=== PATIENT | male | born 1990 | race Caucasian/White ===

== ENCOUNTER 2023-01-01 20:16 | Emergency (ER) | payer BC, OTHER ==
[2023-01-01] MEDS ORDERED: NA CHLORIDE 0.9% 2,000 ML ONE (20:49)
[2023-01-01 21:09] LABS: Absolute Lymphocytes (CBC) 1.2 K/uL (0.7-4.9); Hematocrit 42.8 % (39.6-49.0); Lymphocytes % 8.4 % (15.3-44.8); MCV 88.8 fL (80-100); MPV 8.2 fL (7.6-11.3); RBC Red Blood Cell Count 4.82 M/uL (4.33-5.43)
[2023-01-01] MEDS ORDERED: ONDANSETRON 4 MG/2 ML VIAL ONE ×2 (21:18→21:35)
[2023-01-01 21:21] LABS: Protime INR 0.84
[2023-01-01 21:26] LABS: ALT/SGPT 36 U/L (16-61); Albumin 3.6 g/dL (3.4-5.0); Alkaline Phosphatase 75 U/L (45-117); BUN Blood Urea Nitrogen 19 mg/dL (7-18); Bicarbonate 25 mEq/L (21-32); Bilirubin Total 0.3 mg/dL (0.2-1.0); Creatine Phosphokinase 325 U/L (39-308); Glomerular Filtration Rate 77 ml/min (=/>90); Glucose Level 113 mg/dL (74-106); NT PRO-BNP 21 pg/mL (<125); Protein, Total 7.2 g/dL (6.4-8.2); Sodium Level 139 mEq/L (136-145); Troponin High Sensitivity 20.8 pg/mL (<58.9)
--- NOTE | 2023-01-01 21:26 | RAD REPORT ---
EXAM DESCRIPTION: Soheila Single View01/01/2023 9:12 pm CLINICAL HISTORY: ABDOMINAL DISTENTION COMPARISON: No comparisons TECHNIQUE: Portable AP view of the chest. FINDINGS: The lungs show no focal opacities. Streaky perihilar opacities, and bronchial wall promine nce. No pneumothorax or effusion. The cardiomediastinal contours are unremarkable. IMPRESSION: Findings suggestive of reactive airway disease, R viral infection, without evidence of f ocal pneumonia.
[2023-01-01 21:27] LABS: AST/SGOT 28 U/L (15-37); Bilirubin Direct < 0.1 mg/dL (0-0.2); Bilirubin Indirect, Calculated ND mg/dL (0.2-0.8); Magnesium 2.1 mg/dL (1.6-2.4); Potassium 3.7 mEq/L (3.5-5.1)
--- NOTE | 2023-01-01 22:07 | EDPHYS ---
Physician Documentation [facility] Name: Richard Becker Age: 32 yrs Sex: Male : 1990 Arrival Date: 01/01/2023 Time: 20:16 Bed 7 Private MD: ED Physician Adam Foster HPI: 01/01 20:31 This 32 yrs old Male presents to ER via EMS with complaints of abd pain and harpreet wild behavior. Historical: - Home Meds: 01/02 00:12 sertraline 100 mg oral tablet daily [Active]; cholecalcif 50 mcg [Active]; hydroxyzine ll3 HCl 50 mg Oral tablet as needed [Active]; sulindac 150 mg Oral tablet PRN [Active]; - PMHx: 01/01 20:22 PTSD; as6 - Immunization history:: Adult Immunizations unknown. - Social history:: Smoking status: unknown. ROS: 20:32 Constitutional: Negative for fever, chills, and weight loss, Eyes: Negative for injury, harpreet pain, redness, and discharge, ENT: Negative for injury, pain, and discharge, Neck: Negative for injury, pain, and swelling, Cardiovascular: Negative for chest pain, palpitations, and edema, Respiratory: Negative for shortness of breath, cough, wheezing, and pleuritic chest pain, Back: Negative for injury and pain, : Negative for injury, bleeding, discharge, and swelling, MS/Extremity: Negative for injury and deformity, Skin: Negative for injury, rash, and discoloration, Neuro: Negative for headache, weakness, numbness, tingling, and seizure, Psych: Negative for depression, anxiety, suicide ideation, homicidal ideation, and hallucinations, Allergy/Immunology: Negative for hives, rash, and allergies, Endocrine: Negative for neck swelling, polydipsia, polyuria, polyphagia, and marked weight changes, Hematologic/Lymphatic: Negative for swollen nodes, abnormal bleeding, and unusual bruising. 20:32 Abdomen/GI: Positive for abdominal cramps. Exam: 20:32 Constitutional: This is a well developed, well nourished patient who is awake, alert, harpreet and in no acute distress. Head/Face: Normocephalic, atraumatic. Eyes: Pupils equal round and reactive to light, extra-ocular motions intact. Lids and lashes normal. Conjunctiva and sclera are non-icteric and not injected. Cornea within normal limits. Periorbital areas with no swelling, redness, or edema. ENT: Nares patent. No nasal discharge, no septal abnormalities noted. Tympanic membranes are normal and external auditory canals are clear. Oropharynx with no redness, swelling, or masses, exudates, or evidence of obstruction, uvula midline. Mucous membranes moist. Neck: Trachea midline, no thyromegaly or masses palpated, and no cervical lymphadenopathy. Supple, full range of motion without nuchal rigidity, or vertebral point tenderness. No Meningismus. Chest/axilla: Normal chest wall appearance and motion. Nontender with no deformity. No lesions are appreciated. Respiratory: Lungs have equal breath sounds bilaterally, clear to auscultation and percussion. No rales, rhonchi or wheezes noted. No increased work of breathing, no retractions or nasal flaring. Abdomen/GI: Soft, non-tender, with normal bowel sounds. No distension or tympany. No guarding or rebound. No evidence of tenderness throughout. Back: No spinal tenderness. No costovertebral tenderness. Full range of motion. Male : Normal genitalia with no discharge or lesions. Skin: Warm, dry with normal turgor. Normal color with no rashes, no lesions, and no evidence of cellulitis. MS/ Extremity: Pulses equal, no cyanosis. Neurovascular intact. Full, normal range of motion. Neuro: Awake and alert, GCS 15, oriented to person, place, time, and situation. Cranial nerves II-XII grossly intact. Motor strength 5/5 in all extremities. Sensory grossly intact. Cerebellar exam normal. Normal gait. Psych: Awake, alert, with orientation to person, place and time. Behavior, mood, and affect are within normal limits. 20:32 Cardiovascular: Rate: tachycardic, actual rate is 120 bpm, Rhythm: regular, Pulses: no pulse deficits are appreciated, Heart sounds: normal, Edema: is not appreciated, JVD: is not appreciated. 20:32 ECG was reviewed by the Attending Physician. Vital Signs: 20:21 BP 151 / 97; Pulse 120; Resp 19 S; Temp 99.5(A); Pulse Ox 97% on R/A; Weight 58.97 kg; as6 Height 5 ft. 5 in. ; 21:14 BP 148 / 87; Pulse 120; Resp 20 S; Pulse Ox 99% ; ha1 21:51 BP 129 / 78; Pulse 96; Resp 16; Pulse Ox 97% on R/A; ll3 22:48 BP 111 / 66; Pulse 96; Resp 18; Pulse Ox 100% on R/A; ll3 23:30 BP 112 / 64; Pulse 95; Resp 16 S; Pulse Ox 100% on R/A; ha1 20:21 Body Mass Index 21.63 (58.97 kg, 165.1 cm) as6 MDM: 20:23 Patient medically screened. harpreet 20:34 Differential diagnosis: appendicitis, bowel obstruction, coronary artery disease, harpreet Cholelithiasis, gastritis, gastroesophageal reflux disease, non-specific abd pain, pancreatitis, Peptic Ulcer Disease, urinary tract infection. Data reviewed: vital signs, nurses notes, EMS record, lab test result(s), EKG, radiologic studies, CT scan, plain films. Consideration of Admission/Observation Escalation of care including admission/observation considered. I considered the following discharge prescriptions or medication management in the emergency department Medications were administered in the Emergency Department. See MAR. Independent interpretation of the following test(s) in the Emergency Department EKG: See my EKG interpretation above. Test considered but Not performed: CT: no ct head. Care significantly affected by the following chronic conditions: ptsd. 01/02 04:59 ED course: not suicidal , not homicidal, will follow up outpatient , dad agrees and harpreet will take son home. 01/01 20:29 Order name: Basic Metabolic Panel; Complete Time: 21:41 [facility] 01/01 20:29 Order name: CBC with Diff; Complete Time: 21:41 [facility] 01/01 20:29 Order name: LFT's; Complete Time: 21:41 [facility] 01/01 20:29 Order name: Magnesium; Complete Time: 21:41 [facility] 01/01 20:29 Order name: NT PRO-BNP; Complete Time: 21:41 [facility] 01/01 20:29 Order name: PT-INR; Complete Time: 21:41 [facility] 01/01 20:29 Order name: Troponin HS; Complete Time: 21:41 [facility] 01/01 20:29 Order name: Acetaminophen; Complete Time: 21:41 [facility] 01/01 20:29 Order name: ETOH Level; Complete Time: 21:41 [facility] 01/01 20:29 Order name: Ptt, Activated; Complete Time: 21:41 [facility] 01/01 20:29 Order name: Salicylate; Complete Time: 21:41 [facility] 01/01 20:29 Order name: Urinalysis w/ reflexes; Complete Time: 04:45 [facility] 01/01 20:29 Order name: Urine Drug Screen; Complete Time: 04:45 [facility] 01/01 20:29 Order name: CPK; Complete Time: 21:41 [facility] 01/01 20:32 Order name: Lipase; Complete Time: 21:41 [facility] 01/01 22:31 Order name: SARS RAPID; Complete Time: 04:45 as6 01/01 20:29 Order name: XRAY Chest (1 view); Complete Time: 21:41 [facility] 01/01 20:29 Order name: CT Abd/Pelvis - IV Contrast Only; Complete Time: 04:45 [facility] 01/01 20:29 Order name: EKG; Complete Time: 20:30 [facility] 01/01 20:29 Order name: Cardiac monitoring; Complete Time: 20:30 [facility] 01/01 20:29 Order name: EKG - Nurse/Tech; Complete Time: 20:30 [facility] 01/01 20:29 Order name: IV Saline Lock; Complete Time: 20:30 [facility] 01/01 20:29 Order name: Labs collected and sent; Complete Time: 21:13 [facility] 01/01 20:29 Order name: O2 Per Protocol; Complete Time: 20:30 [facility] 01/01 20:29 Order name: O2 Sat Monitoring; Complete Time: 20:30 [facility] 01/01 20:29 Order name: Suicide Screening ([place]); Complete Time: 00:11 [facility] EC/27 20:32 Rate is 117 beats/min. Rhythm is regular. QRS [place] is Normal. ID interval is normal. [facility] QRS interval is normal. QT interval is normal. No Q waves. T waves are Normal. No ST changes noted. Clinical impression: Sinus tachycardia. Interpreted by me. Reviewed by me. Administered Medications: 20:47 Drug: NS 0.9% IV 1000 ml Route: IV; Rate: 1 bolus; Site: right antecubital; ll3 22:14 Follow up: Response: No adverse reaction; IV Status: Completed infusion; IV Intake: ll3 1000ml 20:47 Drug: NS 0.9% IV 1000 ml Route: IV; Rate: 1 bolus; Site: left antecubital; ll3 23:00 Follow up: Response: No adverse reaction; IV Status: Completed infusion; IV Intake: ll3 1000ml 21:12 Drug: Ondansetron IVP 4 mg Route: IVP; Site: right forearm; ha1 21:28 Follow up: Response: No adverse reaction; No change in condition ll3 21:29 Drug: Ondansetron IVP 4 mg Route: IVP; Site: left antecubital; ll3 01/02 00:11 Follow up: Response: No adverse reaction; Marked relief of symptoms ll3 Disposition Summary: 01/02/23 05:01 Discharge Ordered Location: Home harpreet Problem: new(01/02/23 05:01) harpreet Symptoms: have improved(01/02/23 05:01) harpreet Condition: Stable(01/02/23 05:01) harpreet Diagnosis - Post-traumatic stress disorder (PTSD)(01/02/23 05:01) harpreet - Suicidal ideations - resolved(01/02/23 05:01) harpreet - Abdominal tenderness - resolved harpreet - Elevated white blood cell count(01/02/23 05:01) harpreet Followup: harpreet - With: Private Physician - When: 1 - 2 days - Reason: Recheck today's complaints, Continuance of care, Re-evaluation by your physician Discharge Instructions: - Discharge Summary Sheet harpreet - Abdominal Pain, Adult harpreet - Suicidal Feelings: How to Help Yourself harpreet - Helping Someone Who is Suicidal harpreet - Abdominal Pain, Adult, [id number] harpreet - Stress, Adult harpreet Forms: - Medication Reconciliation Form [facility] - Thank You Letter [facility] - Antibiotic Education [facility] - Prescription Opioid Use [facility] - [email or web address] Prescriptions: - Pepcid 20 mg Oral Tablet - take 1 tablet by ORAL route every 12 hours for 10 days; 20 tablet; Refills: 0, harpreet Product Selection Permitted - Zofran 4 mg Oral Tablet - take 1 tablet by ORAL route every 12 hours As needed; 20 tablet; Refills: 0, harpreet Product Selection Permitted Signatures: Dispatcher [employer] Adam Russo MD MD cha Slawson, Ashby RN RN as6 Radha Morgan RN RN ll3 Lissette Sommer RN RN ha1 Corrections: (The following items were deleted from the chart) 04:45 01/01 22:06 va harpreet mullins 01/02 05:00 01/01 22:06 [employer] [facility] harpreet mullins 01/02 05:00 01/01 22:06 Higher level of care harpreet mullins 01/02 05:00 01/01 22:06 Fair harpreet mullins 01/02 05:00 01/01 22:06 new harpreet mullins 01/02 05:00 01/01 22:06 have improved harpreet mullins 01/02 05:00 01/01 22:06 Post-traumatic stress disorder (PTSD) harpreet mullins 01/02 05:00 01/01 22:06 Abdominal pain, unspecified harpreet mullins 01/02 05:00 01/01 22:06 Suicidal ideations harpreet mullins 01/02 05:00 04:45 va harpreet mullins 05:00 04:45 Elevated white blood cell count harpreet mullins
--- NOTE | 2023-01-01 22:07 | ER ---
Nurse's Notes [facility] [place] [facility] Name: Richard Becker Age: 32 yrs Sex: Male : 1990 Arrival Date: 01/01/2023 Time: 20:16 Bed 7 Private MD: Diagnosis: Post-traumatic stress disorder (PTSD);Suicidal ideations-resolved;Abdominal tenderness-resolved;Elevated white blood cell count Presentation: 01/01 20:22 Chief complaint: EMS states: initial call was approx 1 hr ago for abdominal pain, pt as6 was AAOx4 and corporative but refused EMS. EMS then gets a call for AMS and a combative PD was on scene and EMS gave Ketamine IM, at time of triage pt respirations are even and non labored and medicated. Coronavirus screen: At this time, the client does not indicate any symptoms associated with coronavirus-19. Ebola Screen: No symptoms or risks identified at this time. Initial Sepsis Screen: Does the patient meet any 2 criteria? No. Patient's initial sepsis screen is negative. Does the patient have a suspected source of infection? No. Patient's initial sepsis screen is negative. Risk Assessment: Do you want to hurt yourself or someone else? Unable to obtain. Onset of symptoms was January 01, 2023. Care prior to arrival: Medication(s) given: Normal saline infusion, 500 mL, Ketamine 250mg IM. 20:22 Acuity: HAYDE 2 as6 20:22 Method Of Arrival: EMS: [facility] as6 20:29 Care prior to arrival: IV initiated. 18 GA, 20 GA, in the left in the right antecubital as6 area, forearm, Glucose check: 134. Triage Assessment: 20:21 General: Appears in no apparent distress. Behavior is quiet. Pain: Unable to use pain as6 scale. FLACC scale score is 0 out of 10. Neuro: Level of Consciousness is awake. Historical: - Home Meds: 01/02 00:12 sertraline 100 mg oral tablet daily [Active]; cholecalcif 50 mcg [Active]; hydroxyzine ll3 HCl 50 mg Oral tablet as needed [Active]; sulindac 150 mg Oral tablet PRN [Active]; - PMHx: 01/01 20:22 PTSD; as6 - Immunization history:: Adult Immunizations unknown. - Social history:: Smoking status: unknown. Screenin:48 [facility] ED Fall Risk Assessment (Adult) History of falling in the last 3 months, ll3 including since admission No falls in past 3 months (0 pts) Confusion or Disorientation No (0 pts) Intoxicated or Sedated No (0 pts) Impaired Gait No (0 pts) Mobility Assist Device Used No (0 pt) Altered Elimination No (0 pt) Score/Fall Risk Level 0 - 2 = Low Risk Oriented to surroundings, Maintained a safe environment, Educated pt \T\ family on fall prevention, incl call for assistance when getting out of bed. Abuse screen: Denies threats or abuse. Denies injuries from another. Nutritional screening: No deficits noted. Tuberculosis screening: No symptoms or risk factors identified. Assessment: 20:20 General: Appears comfortable, Behavior is calm. Pain: Denies pain. Neuro: Level of ha1 Consciousness is awake, obeys commands, Oriented to person. Neuro: Romero Agitation-Sedation Scale (RASS): 0 - Alert and Calm Moves all extremities. Gait is unsteady, Speech is normal, Pupils are Pupil Size: 1. Cardiovascular: Patient's skin is warm and dry. Respiratory: Airway is patent Respiratory effort is even, unlabored, Respiratory pattern is regular, symmetrical. GI: No signs and/or symptoms were reported involving the gastrointestinal system. Abdomen is flat, non-distended. :. Derm: Skin is healthy with good turgor, Skin is diaphoretic, Skin is normal. Musculoskeletal: Circulation, motion, and sensation intact. Range of motion: intact in all extremities. 21:05 Reassessment: Patient and/or family updated on plan of care and expected duration. Pain ha1 level reassessed. vomiting. notified in shift. 22:20 Reassessment: Patient and/or family updated on plan of care and expected duration. Pain ha1 level reassessed. Patient is alert, oriented x 3, equal unlabored respirations, skin warm/dry/pink. Patient denies pain at this time. Patient states symptoms have improved. 23:20 Reassessment: Patient and/or family updated on plan of care and expected duration. Pain ha1 level reassessed. Patient is alert, oriented x 3, equal unlabored respirations, skin warm/dry/pink. 01/02 00:30 Reassessment: eyes closed. ha1 00:30 Respiratory: Airway is patent Respiratory effort is even, unlabored, Respiratory ha1 pattern is regular, symmetrical. Vital Signs: 01/01 20:21 BP 151 / 97; Pulse 120; Resp 19 S; Temp 99.5(A); Pulse Ox 97% on R/A; Weight 58.97 kg; as6 Height 5 ft. 5 in. ; 21:14 BP 148 / 87; Pulse 120; Resp 20 S; Pulse Ox 99% ; ha1 21:51 BP 129 / 78; Pulse 96; Resp 16; Pulse Ox 97% on R/A; ll3 22:48 BP 111 / 66; Pulse 96; Resp 18; Pulse Ox 100% on R/A; ll3 23:30 BP 112 / 64; Pulse 95; Resp 16 S; Pulse Ox 100% on R/A; ha1 20:21 Body Mass Index 21.63 (58.97 kg, 165.1 cm) as6 ED Course: 20:20 Patient arrived in ED. as6 20:20 Maintain EMS IV. Dressing intact. Good blood return noted. Site clean \T\ dry. Gauge \T\ montalvo 1 site: 20 venkatesh right forearm. and 20 venkatesh left AC. 20:21 Arm band placed on. as6 20:23 Adam Foster MD is Attending Physician. [facility] 20:29 Triage completed. as6 20:30 Patient has correct armband on for positive identification. Bed in low position. Call ll3 light in reach. Side rails up X 1. Adult w/ patient. 20:32 Radiology exam delayed due to lab results not completed at this time. (BUN/Creatinine) [id number] IV insertion attempt and/or patient not having appropriate IV at this time. 20:59 Acetaminophen Sent. ha1 20:59 ETOH Level Sent. ha1 20:59 Ptt, Activated Sent. ha1 20:59 Salicylate Sent. ha1 21:12 Initial contact for transfer to the [place] hotline. Spoke with michelle and she started the 1 report. Stated to call the local facility. 21:13 Basic Metabolic Panel Sent. ha1 21:13 CBC with Diff Sent. ha1 21:13 LFT's Sent. ha1 21:13 Magnesium Sent. ha1 21:13 NT PRO-BNP Sent. ha1 21:13 PT-INR Sent. ha1 21:13 Troponin HS Sent. ha1 21:13 Acetaminophen Sent. ha1 21:13 ETOH Level Sent. ha1 21:13 Ptt, Activated Sent. ha1 21:13 Salicylate Sent. ha1 21:14 XRAY Chest (1 view) In Process Unspecified. EDMS 21:25 Initial contact for transfer to the [facility] [phone]. Spoke with jennifer Mahajan. He requested to fax over the Nurse notes, physician notes, lab order results and covid test. 21:35 Faxed over Face sheet, nurse notes, physician notes, and lab order results to [facility] [phone]. 22:16 CT Abd/Pelvis - IV Contrast Only In Process Unspecified. EDMS 23:32 Faxed over covid results. [facility] 23:35 Called the [facility] to speak with Keyshawn on if he received the covid test. He stated [facility] that he did and that he will try to get in contact with a doctor and he will get back to me when he does. Administered Medications: 20:47 Drug: NS 0.9% IV 1000 ml Route: IV; Rate: 1 bolus; Site: right antecubital; ll3 22:14 Follow up: Response: No adverse reaction; IV Status: Completed infusion; IV Intake: ll3 1000ml 20:47 Drug: NS 0.9% IV 1000 ml Route: IV; Rate: 1 bolus; Site: left antecubital; ll3 23:00 Follow up: Response: No adverse reaction; IV Status: Completed infusion; IV Intake: ll3 1000ml 21:12 Drug: Ondansetron IVP 4 mg Route: IVP; Site: right forearm; ha1 21:28 Follow up: Response: No adverse reaction; No change in condition ll3 21:29 Drug: Ondansetron IVP 4 mg Route: IVP; Site: left antecubital; ll3 01/02 00:11 Follow up: Response: No adverse reaction; Marked relief of symptoms ll3 Medication: 01/01 22:48 VIS not applicable for this client. ll3 Intake: 22:14 IV: 1000ml; Total: 1000ml. ll3 23:00 IV: 1000ml; Total: 2000ml. ll3 Outcome: 22:06 ER care complete, transfer ordered by MD. mullins 01/02 05:01 Discharge ordered by MD. mullins 05:40 Patient left the ED. [facility] Signatures: Dispatcher [employer] EDAdam Pace MD MD cha Slawson, Ashby RN RN as6 Radha Morgan RN RN ll3 Lissette Sommer RN RN ha1 Marlen Francois [id number] Keisha Knight [facility] Corrections: (The following items were deleted from the chart) 00:28 01/01 21:35 Faxed over Face sheet, nurse notes, physician notes, lab order results and [facility] covid test to [phone] [facility]
--- NOTE | 2023-01-01 22:46 | RAD REPORT ---
EXAM DESCRIPTION: CT - Abdomen Pelvis W Contrast - 01/01/2023 10:14 pm CLINICAL HISTORY: ABD PAIN COMPARISON: No comparisons TECHNIQUE: Thin cut axial CT imaging of the abdomen and pelvis was performed following intravenous a dministration of 98 mL Isovue 300. Multiplanar reformats were generated and reviewed. All CT scans are performed using dose optimization technique as appropriate and may include automated exposure control or mA/KV adjustment according to patient size. FINDINGS: No suspicious findings in the lung bases. The liver, spleen, and pancreas show no suspicious findings. Gallbladder and biliary tree are also wi thout suspicious finding. Symmetric renal function is seen with no hydronephrosis or suspicious renal mass. Two adjacent right superior to mid pole calculi, largest measuring up to 9 millimeter. No dilated bowel loops. Apparent wall prominence along a long segment of nondistended colon extending from the mid ascending through distal transverse colon. No free air, free fluid or inflammatory stra nding. No hernia, mass or bulky lymphadenopathy. The urinary bladder is without significant finding. No suspicious bony findings. IMPRESSION: No acute intra-abdominal process. Nonobstructing right renal calculi Apparent wall prominent mid ascending through distal transverse colon, could relate to nondistention or mild colitis.
[2023-01-01 23:08] LABS: SARS-CoV-2 Antigen Rapid Res Negative (Negative)
[2023-01-02 00:09] LABS: Specific Gravity > 1.030 (1.005-1.030); Urine Bilirubin NEGATIVE (Negative); Urine Blood Negative (Negative); Urine Clarity Clear (Clear); Urine Color Light-Yellow (Yellow); Urine Glucose NEGATIVE (Negative); Urine Protein NEGATIVE (Negative); Urine Urobilinogen Normal (Normal)
[2023-01-02 00:25] LABS: Barbiturates NEGATIVE (NEGATIVE); Benzodiazepines NEGATIVE (NEGATIVE); Cocaine NEGATIVE (NEGATIVE); METHAMPHETAM NEGATIVE (NEGATIVE); Methadone NEGATIVE (NEGATIVE); Opiates NEGATIVE (NEGATIVE); Phencyclidine NEGATIVE (NEGATIVE); THC Cannibis NEGATIVE (NEGATIVE)
[2023-01-02 05:45] VITALS: TEMP 99.5
[2023-01-02 05:49] VITALS: O2SAT 100
[2023-01-02 05:50] VITALS: BP 112/64
--- NOTE | 2023-01-02 18:10 | EKG ---
Test Date: 2023-01-01 Test Time: 20:22:06 Pulping Machine Operator: WILLIAM MEASUREMENT RESULTS: Intervals: Rate: 117 WI: 116 QRSD: 70 QT: 306 QTc: 426 [place]: P: 73 WI: 116 QRS: 71 T: 49 INTERPRETIVE STATEMENTS: Sinus tachycardia Otherwise normal ECG No previous ECG available for comparison Electronically Signed On 01-02-23 18:08:40 CDT by Willie Coy
== END 2023-01-02 05:40 | disposition home or self-care (01) ==
LOC: ER 20:16
DX: F43.10 Post-traumatic stress disorder, unspecified (principal); D72.829 Elevated white blood cell count, unspecified; Z20.822 Contact with and (suspected) exposure to COVID-19
CPT/HCPCS: 85025; 80048; 36415; 83735; 82550; 85610; 80076; 85730; 84484; 83690; 83880; 80307; 74177; 71045; 80143; 80179; 82077; 87811; Q9967; J2405 ×2; J7030; 81003; 93005